=== PATIENT | female | born 1995 | race African-American/Black ===

== ENCOUNTER 2017-01-11 22:32 | Emergency (ER) | payer OTHER ==
[~2017-01-11] VITALS: Ht 172.7 cm; Wt 104.2 kg
[2017-01-11 22:33] VITALS: BP 142/72
[2017-01-11] MEDS ORDERED: PRENTAB16 PO (22:44)
[2017-01-11] MEDS ORDERED: IRON50TA PO (22:44)
== END 2017-01-12 01:35 | disposition left against medical advice (07) ==
LOC: M ED 22:32
DX: R51 Headache (principal); Z53.21 Procedure and treatment not carried out due to patient leaving prior to being seen by health care provider

== ENCOUNTER 2017-01-28 20:07 | Outpatient (CLI) | payer OTHER ==
[~2017-01-28] VITALS: Ht 172.7 cm; Wt 101.0 kg
[~2017-01-28 20:07] MED LIST: IRON50TA PO; PRENTAB16 PO
[2017-01-28 20:18] VITALS: BP 129/63
== END 2017-01-28 21:05 | disposition home or self-care (01) ==
LOC: M LDO 20:07
PROVIDERS: ATTEND Student in an Organized Health Care Education/Training Program
DX: O47.1 False labor at or after 37 completed weeks of gestation (principal); Z3A.39 39 weeks gestation of pregnancy

== ENCOUNTER 2017-01-30 02:03 | Inpatient (IN) | payer OTHER ==
[~2017-01-30] VITALS: Ht 172.7 cm; Wt 97.0 kg
[2017-01-30] VITALS (16 sets, daily range): BP systolic 125–162; BP diastolic 58–88
[2017-01-30] MEDS ORDERED: LACTATED RINGER'S 1000 ML IV STA (02:46)
[2017-01-30] MEDS ORDERED: LR 1,000 ML IV SCH (02:46)
[2017-01-30 03:11] LABS: MEAN CORPUSCULAR HEMOGLOBIN 23.1 pg (27.0-33.0); MEAN CORPUSCULAR HGB CONC 31.9 g/dl (32.0-36.5); MEAN CORPUSCULAR VOLUME 72.5 fl (80.0-96.0); RED CELL DISTRIBUTION WIDTH 15.4 % (11.5-14.5); WHITE BLOOD COUNT 10.9 K/mm3 (4.0-10.0)
[2017-01-30] MEDS ORDERED: FENTANYL 2MCG/ML ROPIVACAINE 0.2% IN 0.9% NACL 200ML IVBAG As Ordered ONE (03:33)
--- NOTE | 2017-01-30 03:47 | HPEPDOC ---
Obstetrical History & Physical General Date of Admission Jan 30, 2017 at 02:42 History of Present Illness 20 y/o at 40+0 with LOF at ~0130 and reg ctx's most of the day yest. Pos FM and no signif VB. Chief Complaint: Contractions, term, LOF, term Information Provided By: Patient Care Care: Good Care Dating Final EDC: Jan 30, 2017 Final EDC by: LMP, 1st trimester (US) Antepartum Course Diagnos(e)s SC trait, husb neg mild anemia, on iron depression, stopped her Zoloft a month ago EIF at malcolm scan, [place] neg, f/u scan 6JUL showed normal malcolm except 4%ile HC , felt to be due to tech. difficulties, repeated a week later on 12JUL which showed 4%ile again-still commented by Radiologist felt to be secondary to technical limitations, see full US reports Past Medical History Past Obstetrical History : Past Obstetrical History: Primgravida Past Medical History Surgical History: [place] teeth Family History Significant Family History: No pertinent family hx Social History Marital Status: Family situation: Spouse/partner home Psychosocial History: No pertinent psych hx * Smoker: non-smoker Alcohol: Denies Drugs: denies Abuse Violence Screening Have you been hit/kicked/slapp: No Have you been sexually assault: No Imunizations Tdap status: current Influenza Status: current Allergies Coded Allergies: No Known Drug Allergy (Verified Allergy, Unknown, 01/11/17) Medications Miscellaneous Medications Ferrous Sulfate (Iron (Ferrous Sulfate)) 50 Mg Tab, 50 MG PO Multivitamins/ ( Complete 14-0.4 mg) 1 Tab Tab, 1 TAB PO Physical Examination Physical Examination GENERAL: Alert and oriented times three. ABDOMEN: Gravid and non-tender to touch. FETUS: Is vertex (VTX) by sterile vaginal examination (SVE 5/90/-1/vtx well applied. EXTREMITIES: No edema. Laboratory Data 24H [facility]S Laboratory Tests 2 01/30/17 02:32: Serology Scanned Report Hepatitis B Testing 01/30/17 03:00: CBC/BMP Laboratory Tests 01/30/17 03:00 Red Blood Count 4.19, Mean Corpuscular Volume 72.5 L, Mean Corpuscular Hemoglobin 23.1 L, Mean Corpuscular Hemoglobin Concent 31.9 L, Red Cell Distribution Width 15.4 H Pertinent Laboratoy Data Blood Type: A+ RBC Antibody Screen: Positive HIV: Negative Hepatitis B: Negative Hepatitis C: Unknown Rapid Plasma Reagin: Nonreactive Rubella: Immune Varicella: Immune Chlamydia/Gonorrhea: Negative Group B Streptococcus: Negative Quad Screen Test: Negative (neg [place]-not quad) Cystic Fibrosis: Declined Glucose Tolerance Test: 115 Anatomy Ultrasound Placenta Location: Posterior Normal Anatomy: Yes (except for single EIF at anaty scan and possible small HC seen at both 3rd tri f/u scans) Placenta Previa: No Assessment Variability: Moderate Accelerations: Positive Decelerations: None Tocometer Contractions: Yes Frequency: regular Assessment/Plan Assessment SROM confirmed, on exam active fluid noted from the vagina, nitr pos. EFW 3400 gm. Plan Admit and orient. Thoracic Medicine Specialist and consent. Diet:clrs Group B Streptococcus (GBS) neg Labs and intravenous (IV) per unit protocol. Counseled on Pitocin and induction of labor (IOL). Lactated Ringers (LR): Bolus 1000 mL, then at 125 mL/hr. Anticipate normal spontaneous delivery () C-S as appropriate. Desires epidural harriet Sessions MD SESSIONS,SHASHI Aguila MD Jan 30, 2017 03:47
[2017-01-30] MEDS ORDERED: diphenhydrAMINE INJ 50MG/ML VIAL (J1200) IV PRN (04:10)
[2017-01-30] MEDS ORDERED: ePHEDrine SULFATE 25 MG/5 ML(5MG/ML) SYRINGE IV PRN (04:10)
[2017-01-30] MEDS ORDERED: LACTATED RINGER'S 1000 ML IV PRN (04:10)
[2017-01-30] MEDS ORDERED: FENTANYL/ROPIVACAINE/NACL BAG 200 ML EPIDURAL SCH (04:10)
[2017-01-30] MEDS ORDERED: EPIDURAL COMMENT XX SCH (04:10)
[2017-01-30] MEDS ORDERED: REFRIGERATOR IV KEYS XX PRN (04:10)
[2017-01-30] MEDS ORDERED: EPIDURAL/PCA KEYS XX PRN (04:10)
[2017-01-30] MEDS ORDERED: ONDANSETRON 4MG/2ML VIAL (J2405) IV PRN (04:10)
[2017-01-30] MEDS ORDERED: NALOXONE INJ 0.4 MG/1 ML VIAL (J2310) IV PRN (04:10)
--- NOTE | 2017-01-30 06:42 | IPNPDOC ---
Text Note Date of Service The patient was seen on 01/30/17. NOTE Epidural working well. NST reassuring with random variable decels but no lates and mod aditi throughout Cx 100/0 Doing well. Plan on recheck in ~2 hrs, sooner prn. SBAR to Dr Franks at 0830. Sessions VS,Nitish, I+O VSNitish I+O Laboratory Tests 01/30/17 03:00 Red Blood Count 4.19, Mean Corpuscular Volume 72.5 L, Mean Corpuscular Hemoglobin 23.1 L, Mean Corpuscular Hemoglobin Concent 31.9 L, Red Cell Distribution Width 15.4 H Vital Signs Date Time Temp Pulse Resp B/P (MAP) Pulse Ox O2 Delivery O2 Flow Rate FiO2 01/30/17 05:08 81 125/58 (80) SESSIONS,SHASHI Aguila MD Jan 30, 2017 06:42
[2017-01-30] MEDS ORDERED: OXYTOCIN DRIP 30 UNITS in APPROPRIATE DILUENT 1 EA IV SCH (09:33)
[2017-01-30 09:44] LABS: CORD GAS ABE V -4.1; CORD GAS HCO3 V 21.2 MEQ/L; CORD GAS O2 SAT V 85.1 %; CORD GAS PCO2 V 39.9 mmHg; CORD GAS PH V 7.344 UNITS; CORD GAS PO2 V 40.8 mmHg; CORD GAS SBC V 20.8 MEQ/L; CORD GAS TCO2 V 22.5 MEQ/L
[2017-01-30] MEDS ORDERED: RHOGAM 300 MCG (1500 IU) INJ (J2790) IM SCH (09:45)
[2017-01-30] MEDS ORDERED: METHYLERGONOVINE MALEATE 0.2 MG TAB PO PRN (09:45)
[2017-01-30] MEDS ORDERED: MOM 30ML SUSPENSION UDC PO PRN (09:45)
[2017-01-30] MEDS ORDERED: OXYTOCIN INJ 10 UNITS/ML VIAL (J2590) IV ONE (09:45)
[2017-01-30] MEDS ORDERED: DOCUSATE SODIUM 100 MG CAP PO PRN (09:45)
[2017-01-30] MEDS ORDERED: MEASLES,MUMPS,RUBELLA VACCINE INJ (MMR-II) (90707) SC SCH (09:45)
[2017-01-30] MEDS ORDERED: DIBUCAINE 1% OINTMENT 30GM TOP PRN (09:45)
[2017-01-30] MEDS ORDERED: ACETAMINOPHEN 500 MG TAB PO PRN (09:45)
[2017-01-30] MEDS ORDERED: ANUSOL HC CREAM 30GM TOP PRN (09:45)
[2017-01-30] MEDS ORDERED: IBUPROFEN 800 MG TAB PO PRN (09:45)
[2017-01-30 09:47] LABS: CORD GAS ABE A -4.4; CORD GAS O2 SAT A 84.6 %; CORD GAS PCO2 A 39.9 mmHg; CORD GAS PH A 7.339 UNITS; CORD GAS PO2 A 39.9 mmHg; CORD GAS SBC A 20.6 MEQ/L; CORD GAS TCO2 A 22.2 MEQ/L
[2017-01-30] MEDS: PRENATAL VITAMINS CHEWABLE TABLET PO SCH (11:35)
[2017-01-31 05:50] VITALS: BP 119/67
[2017-01-31 06:44] LABS: MEAN CORPUSCULAR HEMOGLOBIN 23.8 pg (27.0-33.0); MEAN CORPUSCULAR HGB CONC 32.8 g/dl (32.0-36.5); MEAN CORPUSCULAR VOLUME 72.4 fl (80.0-96.0); RED CELL DISTRIBUTION WIDTH 15.2 % (11.5-14.5); WHITE BLOOD COUNT 8.5 K/mm3 (4.0-10.0)
--- NOTE | 2017-01-31 08:02 | DN ---
DATE: 01/30/2017 This lady is 1, now para 1, was admitted in labor, delivered a live female with epidural in place weighing 7 pounds 4 ounces, 3290 grams, scores of 8 and 9 at one and five minutes respectfully. Cord around the shoulder times once. Arterial pH performed. Placenta delivered spontaneously thereafter. Three vessels in the cord, membranes and tissues intact. Uterus contracted well on Pitocin. Examination of vagina, the sphincter and the rectum - everything was intact. The patient and baby tolerating procedure well.
[2017-01-31] MEDS: PRENATAL VITAMINS CHEWABLE TABLET PO SCH (08:06)
[2017-01-31] MEDS ORDERED: OXYTOCIN INJ 10 UNITS/ML VIAL (J2590) As Ordered ONE (09:12)
[2017-01-31] MEDS ORDERED: NUPE1OIN2 TOP (13:50)
[2017-01-31] MEDS ORDERED: ACET50TA PO (13:51)
[2017-01-31] MEDS ORDERED: MOM30SS PO (13:52)
[2017-01-31] MEDS ORDERED: COLA100C5 PO (13:52)
[2017-01-31] MEDS ORDERED: ANUS2.5C2 TOP (13:53)
[2017-01-31] MEDS ORDERED: IBUP-1114 PO (13:54)
--- NOTE | 2017-01-31 16:02 | IPN ---
DATE: 01/30/2017 This a 21-year-old 1, now para 1, had spontaneous vaginal delivery of a live female infant weighing 7 pounds, 4 ounces, scores of 8 and 9 at one and five minutes respectively. On her day one, hemoglobin is 8.9, hematocrit 27.0, and platelets are 107. She came in with a hemoglobin of 9.7, hematocrit of 30.4, and platelets of 128. She was known to have anemia prior to delivery and she also is sickle cell trait positive. is sickle cell trait negative. The arterial blood gas was 7.33, base excess -4.4, venous pH 7.34, base excess -4.1. On day one, her blood pressure is 119/67, respirations are 18, pulse 83, temperature is 97.9. We discussed phlebitis, cystitis, mastitis, endometritis and cellulitis, diet, exercise, pain management, perineal, breast and wound care. The rest of the examination unremarkable. She is breast-feeding and is doing well. She is normocephalic, atraumatic. Neck: Full range of motion. Pupils are equal and reactive to light. Distal pulses are symmetric. No evidence of deep vein thrombosis (DVT), pulmonary embolism (PE) or superficial phlebitis. Chest is clear bilaterally to bases. No wheezes or rhonchi. No costovertebral angle (CVA) tenderness. Uterus 2 below. Lochia is moderate. Four quadrant bowel sounds are noted and perineum is healing. No rashes, lesions or pruritus. No arthralgia or myalgia. No complaint of cough, wheezes, shortness of breath or dyspnea on exertion. No chest pain. Not bleeding. Neurologically complete. No incontinence, urgency or frequency. No nausea, vomiting, diarrhea or constipation. No diabetic issues. PAST MEDICAL HISTORY: Noncontributory. PAST SURGICAL HISTORY: Noncontributory. FAMILY HISTORY: Noncontributory. SOCIAL HISTORY: She does not smoke, drink or abuse drugs. She is and there is no domestic violence. In summary, we have a term gestation who delivered a live female for planned discharge either today or tomorrow depending on whether the baby is allowed to go home. The patient has a six-week postoperative check and her medications were given at discharge.
== END 2017-01-31 15:15 | disposition home or self-care (01) | DRG 775 ==
LOC: M LDO 02:03 → M LDI 02:42 → M OBS 11:19
PROVIDERS: ADMIT Obstetrics & Gynecology; ATTEND Obstetrics & Gynecology
PROC: 10E0XZZ Delivery of Products of Conception, External Approach (ICD-10-PCS; principal; 2017-01-30)
DX: O48.0 Post-term pregnancy (principal); Z37.0 Single live birth; Z3A.40 40 weeks gestation of pregnancy; O69.82X0 Labor and delivery complicated by other cord entanglement, without compression, not applicable or unspecified

== ENCOUNTER 2017-06-11 11:17 | Emergency (ER) | payer OTHER ==
[~2017-06-11] VITALS: Ht 172.7 cm; Wt 96.4 kg
[~2017-06-11 11:17] MED LIST changes: +ACET50TA PO; +ANUS2.5C2 TOP; +COLA100C5 PO; +IBUP-1114 PO; +MOM30SS PO; +NUPE1OIN2 TOP
[2017-06-11] MEDS ORDERED: ACETAMINOPHEN 325 MG TAB PO ONE (12:15)
[2017-06-11] MEDS ORDERED: MIRA3350 PO (13:02)
[2017-06-11] MEDS ORDERED: COLA100C5 PO (13:02)
[2017-06-11 13:11] VITALS: BP 139/76
--- NOTE | 2017-06-11 13:53 | REP ---
ABDOMINAL SERIES: Supine and erect views of the abdomen demonstrate no free air and no compelling evidence for small bowel obstruction. There is mild diffuse fecal material in the colon. IUD is seen in the pelvis. There are no other significant findings. No abnormal calcifications are seen. Signed by Carroll Rojo MD 06/11/2017 03:54 P
[2017-06-14] MEDS ORDERED: NORCOTAB PO (20:59)
== END 2017-06-11 13:12 | disposition home or self-care (01) ==
LOC: M ED 11:17
DX: K59.00 Constipation, unspecified (principal); R10.84 Generalized abdominal pain; R51 Headache; F32.9 Major depressive disorder, single episode, unspecified; D57.3 Sickle-cell trait; Z97.5 Presence of (intrauterine) contraceptive device

== ENCOUNTER 2017-06-14 19:14 | Emergency (ER) | payer OTHER ==
[2017-06-14] MEDS: NORCO, ANEXSIA 5/325MG TABLET (HYDROcodone/ACETAMINOPHEN) PO (19:51)
[2017-06-14] MEDS: NORCO 5/325MG TABLET (BULK FOR ED) PO (21:00)
== END 2017-06-14 21:27 | disposition home or self-care (01) ==
LOC: M ED 19:14
DX: S62.320A Displaced fracture of shaft of second metacarpal bone, right hand, initial encounter for closed fracture (principal); W22.09XA Striking against other stationary object, initial encounter; Y92.009 Unspecified place in unspecified non-institutional (private) residence as the place of occurrence of the external cause; Y93.89 Activity, other specified; Y99.8 Other external cause status; D57.3 Sickle-cell trait
CPT/HCPCS: 73130

== ENCOUNTER 2018-10-18 07:50 | Emergency (ER) | payer OTHER ==
[~2018-10-18] VITALS: Ht 170.2 cm; Wt 90.7 kg
[~2018-10-18 07:50] MED LIST changes: -ACET50TA PO; +HYDR-3715 PO; +MAPA500T2 PO; +MIRA3350 PO
[2018-10-18 07:51] VITALS: BP 138/69
[2018-10-18] MEDS ORDERED: MUCI600T31 PO (08:06)
[2018-10-18] MEDS ORDERED: IBUP80TA PO (08:06)
[2018-10-18] MEDS ORDERED: AUGM875T28 PO (08:06)
[2018-10-18] MEDS ORDERED: IBUPROFEN 800 MG TAB PO ONE (08:15)
[2018-10-18] MEDS ORDERED: AUGMENTIN 875 MG TAB PO ONE (08:15)
== END 2018-10-18 08:14 | disposition home or self-care (01) ==
LOC: M ED 07:50
DX: J01.90 Acute sinusitis, unspecified (principal); H92.03 Otalgia, bilateral

== ENCOUNTER 2018-11-03 04:02 | Emergency (ER) | payer OTHER ==
[~2018-11-03] VITALS: Ht 172.7 cm; Wt 85.0 kg
[~2018-11-03 04:02] MED LIST changes: +AUGM875T28 PO; +IBUP80TA PO; +MUCI600T31 PO
[2018-11-03 04:39] LABS: BASO % 0.6 % (0.0-1.0); EOS # 0.1 10^3/uL (0.0-0.50); EOS % 1.7 % (0.0-3.0); HEMATOCRIT 34.4 % (36.0-47.0); HEMOGLOBIN 10.8 g/dl (12.0-15.5); LYMPH % 36.9 % (24.0-44.0); MEAN CORPUSCULAR HEMOGLOBIN 22.1 pg (27.0-33.0); MEAN CORPUSCULAR HGB CONC 31.4 g/dl (32.0-36.5); MEAN CORPUSCULAR VOLUME 70.3 fl (80.0-96.0); MONO # 0.4 10^3/uL (0.0-0.8); NEUTROPHILS # 2.9 10^3/uL (1.8-7.7); NEUTROPHILS % 52.6 % (36.0-66.0); PLATELET COUNT, AUTOMATED 310 10^3/uL (150-450); RED BLOOD COUNT 4.89 10^6/uL (4.00-5.40); WHITE BLOOD COUNT 5.4 10^3/uL (4.0-10.0)
[2018-11-03 05:04] LABS: HCG, SERUM QUALITATIVE NEGATIVE (NEGATIVE)
[2018-11-03 05:12] LABS: ALBUMIN 3.5 GM/DL (3.2-5.2); ALT/SGPT 25 U/L (12-78); BILIRUBIN,DIRECT < 0.1 MG/DL (0.0-0.2); BILIRUBIN,TOTAL 0.3 MG/DL (0.2-1.0); BLOOD UREA NITROGEN 12 MG/DL (7-18); CALCIUM LEVEL 8.9 MG/DL (8.5-10.1); CARBON DIOXIDE LEVEL 29 MEQ/L (21-32); CHLORIDE LEVEL 109 MEQ/L (98-107); CREATININE FOR GFR 0.85 MG/DL (0.55-1.30); GLOMERULAR FILTRATION RATE > 60.0 (>60); GLUCOSE, FASTING 93 MG/DL (70-100); LIPASE 132 U/L (73-393); POTASSIUM SERUM 4.4 MEQ/L (3.5-5.1); SODIUM LEVEL 140 MEQ/L (136-145); TOTAL PROTEIN 7.4 GM/DL (6.4-8.2)
[2018-11-03] MEDS ORDERED: ONDANSETRON 4MG/2ML VIAL (J2405) IV ONE (05:15)
[2018-11-03] MEDS ORDERED: PANTOPRAZOLE 40MG INJ (PROTONIX) (C9113) IV ONE (05:15)
[2018-11-03] MEDS ORDERED: NS 1,000 ML IV ONE (05:15)
[2018-11-03 05:56] VITALS: BP 112/59
--- NOTE | 2018-11-03 06:17 | REPVR ---
EXAM: US Abdomen Limited, Right Upper Quadrant EXAM DATE/TIME: 11/03/2018 5:55 AM CLINICAL HISTORY: 22 years old, female; Abdominal pain; Other: Llq; Additional info: Upper abd pain eval for cholecystitis TECHNIQUE: Imaging protocol: Real-time ultrasound of the abdomen with image documentation. Examination was focused on the right upper quadrant. COMPARISON: No relevant prior studies available. FINDINGS: Liver: Normal. No masses. Gallbladder: Normal. No gallstones. There is no gallbladder wall thickening. Common bile duct: Bile ducts are normal in caliber. CBD 2-3 mm. Pancreas: Visualized pancreas is unremarkable. Right kidney: The right kidney measures 11.8 cm in length and is unremarkable. Inferior vena cava: The visualized IVC is unremarkable. IMPRESSION: Unremarkable examination. No acute abnormalities are identified. Electronically signed by: Rivera Mejía On 11/03/2018 06:17:14 AM
[2018-11-03] MEDS ORDERED: ZOFR4TAB16 PO (06:27)
== END 2018-11-03 06:40 | disposition home or self-care (01) ==
LOC: M ED 04:02
DX: R10.9 Unspecified abdominal pain (principal)
CPT/HCPCS: 76705; 80048; 80076; 83690; 84703; 85025; 96361; 96374; 96375; 99284; C9113; J2405

== ENCOUNTER 2018-12-23 07:54 | Emergency (ER) | payer OTHER ==
[~2018-12-23] VITALS: Ht 172.7 cm; Wt 81.4 kg
[~2018-12-23 07:54] MED LIST changes: +ZOFR4TAB16 PO
[2018-12-23] MEDS ORDERED: dexameTHASONE 20 MG/5 ML VIAL (J1100) IM ONE (08:15)
[2018-12-23] MEDS ORDERED: KETOROLAC 30 MG/ML VIAL (J1885) IM ONE (08:15)
[2018-12-23 09:32] LABS: MONO SCRN NEGATIVE (NEGATIVE)
[2018-12-23] MEDS ORDERED: IBUP80TA PO (09:42)
[2018-12-23 10:02] VITALS: BP 128/77
== END 2018-12-23 10:00 | disposition home or self-care (01) ==
LOC: M ED 07:54
DX: J02.9 Acute pharyngitis, unspecified (principal)
CPT/HCPCS: 86308; 87880; 96372; 99284; J1100; J1885

== ENCOUNTER 2019-01-21 09:04 | Emergency (ER) | payer OTHER ==
[~2019-01-21] VITALS: Ht 172.7 cm; Wt 87.6 kg
[2019-01-21] MEDS ORDERED: ONDANSETRON 4 MG ORAL DISINTEGRATING TAB (Q0162 PER 1MG) PO ONE (09:45)
[2019-01-21] MEDS ORDERED: FAMOTIDINE 20 MG TAB PO ONE (09:45)
[2019-01-21] MEDS ORDERED: SUCRALFATE SUSP 1GM/10ML UD PO ONE (09:45)
[2019-01-21 10:12] LABS: EOS % 0.2 % (0.0-3.0); HEMATOCRIT 37.9 % (36.0-47.0); HEMOGLOBIN 12.1 g/dl (12.0-15.5); LYMPH # 0.4 10^3/uL (1.5-6.5); MEAN CORPUSCULAR HEMOGLOBIN 22.4 pg (27.0-33.0); MEAN CORPUSCULAR HGB CONC 31.9 g/dl (32.0-36.5); MEAN CORPUSCULAR VOLUME 70.1 fl (80.0-96.0); MONO # 0.2 10^3/uL (0.0-0.8); MONO % 3.1 % (0.0-5.0); NEUTROPHILS # 5.3 10^3/uL (1.8-7.7); NEUTROPHILS % 89.4 % (36.0-66.0); PLATELET COUNT, AUTOMATED 197 10^3/uL (150-450); RED BLOOD COUNT 5.41 10^6/uL (4.00-5.40); WHITE BLOOD COUNT 5.9 10^3/uL (4.0-10.0)
[2019-01-21 10:25] LABS: APPEARANCE, URINE CLEAR (CLEAR); BACTERIA, URINE AUTO NEGATIVE (NEGATIVE); BILIRUBIN, URINE AUTO NEGATIVE (NEGATIVE); BLOOD, URINE BLOOD NEGATIVE (NEGATIVE); COLOR, URINE YELLOW (YELLOW); GLUCOSE, URINE (UA) AUTO NEGATIVE (NEGATIVE); KETONE, URINE AUTO NEGATIVE (NEGATIVE); LEUKOCYTE ESTERASE, URINE AUTO NEGATIVE (NEGATIVE); NITRITE, URINE AUTO NEGATIVE (NEGATIVE); PROTEIN, URINE AUTO NEGATIVE (NEGATIVE); RBC, URINE AUTO 1 /HPF (0-3); SPECIFIC GRAVITY URINE AUTO 1.025 (1.002-1.035); SQUAMOUS EPITHELIAL CELL UR AU 2 /HPF (0-6); UROBILINOGEN, URINE AUTO 0.2 mg/dL (0.0-2.0); WBC, URINE AUTO 2 /HPF (0-3)
[2019-01-21 11:22] LABS: ALT/SGPT 29 U/L (12-78); AMYLASE 57 U/L (25-115); BILIRUBIN,DIRECT 0.2 MG/DL (0.0-0.2); BILIRUBIN,TOTAL 0.4 MG/DL (0.2-1.0); BLOOD UREA NITROGEN 14 MG/DL (7-18); CALCIUM LEVEL 8.9 MG/DL (8.5-10.1); CARBON DIOXIDE LEVEL 29 MEQ/L (21-32); CHLORIDE LEVEL 105 MEQ/L (98-107); CREATININE FOR GFR 0.88 MG/DL (0.55-1.30); GLOMERULAR FILTRATION RATE > 60.0 (>60); GLUCOSE, FASTING 100 MG/DL (70-100); LIPASE 95 U/L (73-393); POTASSIUM SERUM 4.1 MEQ/L (3.5-5.1); SODIUM LEVEL 140 MEQ/L (136-145)
[2019-01-21] MEDS ORDERED: ONDA4TAB6 PO (11:25)
[2019-01-21] MEDS ORDERED: FAMO1TAB11 PO (11:25)
[2019-01-21 11:48] VITALS: BP 129/62
== END 2019-01-21 11:51 | disposition home or self-care (01) ==
LOC: M ED 09:04
DX: K52.9 Noninfective gastroenteritis and colitis, unspecified (principal); R11.2 Nausea with vomiting, unspecified; G43.909 Migraine, unspecified, not intractable, without status migrainosus
CPT/HCPCS: 80048; 80076; 81001; 82150; 83690; 85025; 99283; Q0162

== ENCOUNTER 2019-03-03 06:40 | Emergency (ER) | payer OTHER ==
[~2019-03-03] VITALS: Ht 172.7 cm; Wt 90.0 kg
[~2019-03-03 06:40] MED LIST changes: +FAMO1TAB11 PO; +ONDA4TAB6 PO
[2019-03-03 07:47] LABS: BASO % 0.6 % (0.0-1.0); EOS # 0.1 10^3/uL (0.0-0.5); EOS % 1.4 % (0.0-3.0); HEMATOCRIT 31.5 % (36.0-47.0); HEMOGLOBIN 10.3 g/dl (12.0-15.5); LYMPH # 1.6 10^3/uL (1.5-5.0); LYMPH % 45.2 % (24.0-44.0); MEAN CORPUSCULAR HEMOGLOBIN 22.3 pg (27.0-33.0); MEAN CORPUSCULAR HGB CONC 32.7 g/dl (32.0-36.5); MEAN CORPUSCULAR VOLUME 68.3 fl (80.0-96.0); MONO # 0.3 10^3/uL (0.0-0.8); MONO % 8.7 % (0.0-5.0); NEUTROPHILS # 1.5 10^3/uL (1.5-8.5); NEUTROPHILS % 44.1 % (36.0-66.0); PLATELET COUNT, AUTOMATED 198 10^3/uL (150-450); RED BLOOD COUNT 4.61 10^6/uL (4.00-5.40); WHITE BLOOD COUNT 3.5 10^3/uL (4.0-10.0)
[2019-03-03 08:20] LABS: ALBUMIN 3.8 GM/DL (3.2-5.2); ALT/SGPT 24 U/L (12-78); BILIRUBIN,DIRECT 0.1 MG/DL (0.0-0.2); BILIRUBIN,TOTAL 0.4 MG/DL (0.2-1.0); BLOOD UREA NITROGEN 11 MG/DL (7-18); CALCIUM LEVEL 8.8 MG/DL (8.5-10.1); CARBON DIOXIDE LEVEL 26 MEQ/L (21-32); CHLORIDE LEVEL 109 MEQ/L (98-107); CREATININE FOR GFR 0.82 MG/DL (0.55-1.30); GLOMERULAR FILTRATION RATE > 60.0 (>60); GLUCOSE, FASTING 83 MG/DL (70-100); POTASSIUM SERUM 3.7 MEQ/L (3.5-5.1); SODIUM LEVEL 141 MEQ/L (136-145); TOTAL PROTEIN 7.3 GM/DL (6.4-8.2)
[2019-03-03] MEDS ORDERED: ONDA4TAB6 PO (08:59)
[2019-03-03] MEDS ORDERED: FERR325T3 PO (08:59)
[2019-03-03 09:03] VITALS: BP 122/85
== END 2019-03-03 09:14 | disposition home or self-care (01) ==
LOC: M ED 06:40
DX: R19.7 Diarrhea, unspecified (principal); D64.9 Anemia, unspecified; Z79.899 Other long term (current) drug therapy

== ENCOUNTER → 2020-05-11 | Outpatient (CLI) | payer SELFPAY ==
[~2020-05-11] MED LIST changes: +FERR325T3 PO
== END ==
LOC: M LABSMTC 08:22
PROVIDERS: ATTEND Pediatrics
DX: Z20.828 Contact with and (suspected) exposure to other viral communicable diseases (principal)

== ENCOUNTER 2020-11-28 17:11 | Emergency (ER) | payer OTHER ==
[~2020-11-28] VITALS: Ht 170.2 cm; Wt 89.0 kg
[2020-11-28] MEDS ORDERED: DERMABOND TOPICAL SKIN ADHESIVE TOP ONE (18:20)
[2020-11-28 18:43] VITALS: BP 122/68
== END 2020-11-28 18:46 | disposition home or self-care (01) ==
LOC: M ED 17:11
DX: S61.201A Unspecified open wound of left index finger without damage to nail, initial encounter (principal); Y92.9 Unspecified place or not applicable; Y93.9 Activity, unspecified; Y99.9 Unspecified external cause status